=== PATIENT | male | born 1960 | race Two or more races ===

== ENCOUNTER 2020-01-16 09:08 | Outpatient (CLI) | payer BC ==
[2020-01-16] MEDS ORDERED: OMNIPAQUE 350 MG/ML, 100ML BOTTLE ONE (11:16)
[2020-01-27] MEDS ORDERED: ATOR40TA78 PO (13:00)
[2020-01-27] MEDS ORDERED: TRAZ-175 PO (13:00)
[2020-01-27] MEDS ORDERED: VENL37.511 PO (13:00)
[2020-01-27] MEDS ORDERED: TAMS-11 PO (13:00)
== END 2020-01-16 23:59 | disposition home or self-care (01) ==
LOC: CVU 09:08 → RAD 23:59
PROVIDERS: ATTEND Internal Medicine Cardiovascular Disease
DX: I06.1 Rheumatic aortic insufficiency (principal); I65.29 Occlusion and stenosis of unspecified carotid artery
CPT/HCPCS: 71275; 93880; Q9967

== ENCOUNTER 2020-01-28 04:34 | Inpatient (IN) | payer BC ==
[2020-01-27 13:22] LABS: MICROSCOPIC NOT IND
[2020-01-27 13:32] LABS: BASOPHILS # (AUTO) 0.03 x10^3/uL (0-0.1); BASOPHILS % (AUTO) 1 % (0-1); EOSINOPHILS # (AUTO) 0.23 x10^3/uL (0-0.4); EOSINOPHILS % (AUTO) 4 % (1-7); LYMPHOCYTES # (AUTO) 1.45 x10^3/uL (1-3.4); LYMPHOCYTES % (AUTO) 24 % (22-44); MD NO; MEAN CORPUSCULAR HEMOGLOBIN 29.7 pg (27.5-34.5); MEAN CORPUSCULAR HGB CONC 32.9 g/dL (33.2-36.2); MEAN CORPUSCULAR VOLUME 90.3 fL (81-97); MEAN PLATELET VOLUME 7.9 fL (7.4-10.4); MONOCYTES # (AUTO) 0.49 x10^3/uL (0.2-0.8); MONOCYTES % (AUTO) 8 % (2-9); NEUTROPHILS # (AUTO) 3.85 x10^3/uL (1.8-6.8); NEUTROPHILS % (AUTO) 64 % (42-75); PLATELET COUNT 178 x10^3/uL (130-400); RED BLOOD COUNT 5.25 x10^6/uL (4.38-5.82); RED CELL DISTRIBUTION WIDTH 13.4 % (9.4-14.8)
[2020-01-27 13:35] LABS: INTERNATIONAL NORMALIZED RATIO 0.95 (0.93-1.1); PROTHROMBIN TIME 10.1 Seconds (9.6-11.5)
[2020-01-27 13:36] LABS: ALANINE AMINOTRANSFERASE 41 U/L (12-78); ALBUMIN 3.6 g/dL (3.4-5.0); ANION GAP 7 mmol/L (5-15); CALCIUM 8.8 mg/dL (8.5-10.1); CHLORIDE 111 mmol/L (98-107); CREATININE 1.06 mg/dL (0.7-1.3)
[2020-01-27 13:38] LABS: ALKALINE PHOSPHATASE 63 U/L (45-117); BILIRUBIN,TOTAL 0.3 mg/dL (0.2-1.0); TOTAL PROTEIN 6.6 g/dL (6.4-8.2)
[2020-01-28] VITALS (11 sets, daily range): BP systolic 86–138; BP diastolic 47–83
[~2020-01-28] VITALS: Ht 172.7 cm; Wt 82.7 kg
[~2020-01-28 04:34] MED LIST: ATOR40TA78 PO; TAMS-11 PO; TRAZ-175 PO; VENL37.511 PO
[2020-01-28] MEDS ORDERED: CHLORHEXIDINE 15 ML UDC MM SCH (05:00)
[2020-01-28] MEDS ORDERED: DO NOT GIVE MC SCH (05:00)
[2020-01-28] MEDS ORDERED: INSULIN LISPRO 100 UNITS/ML, PEN SQ-INSULIN SCH (05:00)
[2020-01-28] MEDS ORDERED: MIDAZOLAM 10MG/2 ML ONE (06:39)
[2020-01-28] MEDS ORDERED: FENTANYL PF 250 MCG/5ML ONE ×4 (06:40)
[2020-01-28] MEDS ORDERED: CALCIUM CHLORIDE 10%, 10ML SYR ONE ×2 (06:40→11:58)
[2020-01-28] MEDS ORDERED: AMINOCAPROIC ACID 250 MG/ML, 20ML ONE ×28 (06:42→06:47)
[2020-01-28] MEDS ORDERED: ROCURONIUM 10MG/ML,5ML ONE ×2 (06:46→06:48)
[2020-01-28] MEDS ORDERED: EPINEPHRINE 1 MG/ML, 1ML ONE (06:46)
[2020-01-28] MEDS ORDERED: PROPOFOL 10 MG/ML, 20ML ONE (06:47)
[2020-01-28] MEDS ORDERED: SODIUM CHLORIDE 0.9% 1,000 ML IV PRN (07:19)
[2020-01-28] MEDS ORDERED: NITROGLYCERIN/D5W PMX 250 ML IV PRN (07:19)
[2020-01-28] MEDS ORDERED: REGULAR INSULIN 100 UNITS in SODIUM CHLORIDE 0.9% 99 ML IV PRN ×2 (07:19→07:30)
[2020-01-28] MEDS ORDERED: PHENYLEPHRINE 50 MG in SODIUM CHLORIDE 0.9% 245 ML IV PRN ×2 (07:19→07:30)
[2020-01-28] MEDS ORDERED: VASOPRESSIN 20 UNIT/ML, 1ML ONE (07:21)
[2020-01-28] MEDS ORDERED: POTASSIUM CHLORIDE 80 MEQ, SODIUM BICARBONATE 8.4% 10 MEQ, MAGNESIUM SULFATE 0.5 GM, LI... IV PRN (07:30)
[2020-01-28] MEDS ORDERED: EPINEPHRINE 5 MG in SODIUM CHLORIDE 0.9% 245 ML IV PRN ×2 (07:30→10:30)
[2020-01-28] MEDS ORDERED: ACETAMINOPHEN 325 MG TABLET PO PRN (07:30)
[2020-01-28] MEDS ORDERED: VANCOMYCIN 1,200 MG in SODIUM CHLORIDE 0.9% 250 ML IV PRN (07:30)
[2020-01-28] MEDS ORDERED: CEFUROXIME 1.5 GM in SODIUM CHLORIDE 0.9% 50 ML IVPB PRN (07:30)
[2020-01-28] MEDS ORDERED: DEXTROSE 4 GM TAB.CHEW PO PRN (07:30)
[2020-01-28] MEDS ORDERED: DEXMEDETOMIDINE 200 MCG in SODIUM CHLORIDE 0.9% 48 ML IV PRN ×2 (07:30→10:30)
[2020-01-28] MEDS ORDERED: MANNITOL PMX 20% 500 ML IVPB PRN (07:30)
[2020-01-28] MEDS ORDERED: SODIUM BICARB 8.4%, 50ML SYRINGE IV PRN (07:30)
[2020-01-28] MEDS ORDERED: FENTANYL PF 100 MCG/2ML IVPush PRN (07:30)
[2020-01-28] MEDS ORDERED: DEXTROSE 50%, 50ML SYRINGE IVPush PRN (07:30)
[2020-01-28] MEDS ORDERED: ALBUMIN HUMAN 5% 500 ML IV PRN (07:30)
[2020-01-28] MEDS ORDERED: GLUCAGON 1 MG IM PRN (07:30)
[2020-01-28] MEDS ORDERED: OXYcodone IR 5MG TABLET PO PRN (07:30)
[2020-01-28] MEDS ORDERED: MIDAZOLAM 1 MG/ML, 5ML IVPush PRN (07:30)
[2020-01-28] MEDS ORDERED: ACETAMINOPHEN 650 MG SUPP PR PRN (07:30)
[2020-01-28] MEDS ORDERED: BISACODYL 10 MG SUPP PR PRN (07:30)
[2020-01-28] MEDS ORDERED: LACTATED RINGERS 1,000 ML IV PRN (07:30)
[2020-01-28] MEDS ORDERED: BISACODYL 5 MG EC TABLET PO PRN (07:30)
[2020-01-28] MEDS ORDERED: INSULIN REGULAR 100 UNITS/ML, 3ML VIAL IVPush PRN (07:30)
[2020-01-28] MEDS ORDERED: HYDROcodone/APAP 5/325 TABLET PO PRN (07:30)
[2020-01-28] MEDS: MUPIROCIN OINT 2%, 22GM NAS SCH ×2 (09:00→21:27)
[2020-01-28] MEDS ORDERED: MUPIROCIN OINT 2%, 22GM TP SCH (09:00)
[2020-01-28] MEDS: DOCUSATE 100 MG CAPSULE PO SCH ×2 (09:00→21:26)
[2020-01-28] MEDS ORDERED: VASOPRESSIN 20 UNIT in SODIUM CHLORIDE 0.9% 99 ML IV PRN (10:30)
[2020-01-28] MEDS ORDERED: DOBUTAMINE 250 MG in SODIUM CHLORIDE 0.9% 230 ML IV PRN (10:30)
[2020-01-28] MEDS ORDERED: PROCHLORPERAZINE 5 MG/ML, 2ML IVPush PRN (10:30)
[2020-01-28] MEDS: KSCALE TO 4.5 IV SCH ×2 (11:00→17:00)
[2020-01-28] MEDS: INSULIN LISPRO 100 UNITS/ML, PEN SQ-INSULIN SCH ×3 (11:00→19:36)
[2020-01-28 11:20] LABS: GLUCOSE BY BLOOD GAS ANALYZER 143 mg/dL (70-110); HEMOGLOBIN BY BLOOD GAS ANALYZ 11.4 g/dL (14.0-18.0); POTASSIUM BY BLOOD GAS ANALYZR 3.6 mmol/L (3.6-5.5)
[2020-01-28] MEDS ORDERED: PROTAMINE SULFATE 10 MG/ML, 5ML IVPush ONE (11:20)
[2020-01-28] MEDS: MAGNESIUM SULFATE 1 GM in SODIUM CHLORIDE 0.9% 100 ML IVPB SCH (11:31)
[2020-01-28 11:39] LABS: INTERNATIONAL NORMALIZED RATIO 1.54 (0.93-1.1); PROTHROMBIN TIME 16.4 Seconds (9.6-11.5)
[2020-01-28] MEDS ORDERED: SODIUM BICARB 8.4%, 50ML SYRINGE ONE (11:44)
[2020-01-28] MEDS ORDERED: ALBUMIN HUMAN 25% 50 ML ONE (11:45)
[2020-01-28] MEDS ORDERED: HEPARIN 1,000 UNITS/ML, 30ML ONE ×4 (11:46→11:47)
[2020-01-28] MEDS ORDERED: methylPREDNISolone SOD SUCC 125 MG/2 ML ONE (11:47)
[2020-01-28] MEDS ORDERED: LIDOCAINE 2%, 20ML ONE (11:48)
[2020-01-28] MEDS ORDERED: CALCIUM CHLORIDE 10%, 10ML SYR IVPush STA (11:52)
[2020-01-28] MEDS ORDERED: NOVOSEVEN RT (FACTOR VIIA) RECOMB 1,000 MCG IVPush ONE (11:52)
[2020-01-28] MEDS: SODIUM CHLORIDE FLUSH 10ML SYR IVF SCH ×4 (12:07→21:28)
[2020-01-28] MEDS ORDERED: CALCIUM CHLORIDE 13.6 MEQ in SODIUM CHLORIDE 0.9% 100 ML IV ONE (12:30)
[2020-01-28] MEDS ORDERED: POTASSIUM CHLORIDE 30 MEQ in SODIUM CHLORIDE 0.9% 100 ML IV ONE (12:30)
[2020-01-28] MEDS: CEFUROXIME 1.5 GM in SODIUM CHLORIDE 0.9% 50 ML IVPB SCH (17:58)
[2020-01-28] MEDS: HYDROcodone/APAP 10/325 MG TABLET PO PRN (19:13)
[2020-01-28] MEDS ORDERED: ALBUMIN HUMAN 5% 500 ML IV ONE (21:00)
[2020-01-28] MEDS: ONDANSETRON 2MG/ML, 2ML IVPush PRN (21:26)
[2020-01-28] MEDS: VANCOMYCIN 1,200 MG in SODIUM CHLORIDE 0.9% 250 ML IVPB SCH (22:30)
[2020-01-29] MEDS: HYDROcodone/APAP 10/325 MG TABLET PO PRN ×4 (00:10→23:58)
[2020-01-29] MEDS: INSULIN LISPRO 100 UNITS/ML, PEN SQ-INSULIN SCH ×4 (00:11→20:42)
[2020-01-29] MEDS: KSCALE TO 4.5 IV SCH ×2 (00:36→06:18)
[2020-01-29] MEDS: ONDANSETRON 2MG/ML, 2ML IVPush PRN (04:52)
[2020-01-29 05:41] LABS: INTERNATIONAL NORMALIZED RATIO 1.12 (0.93-1.1); PROTHROMBIN TIME 11.9 Seconds (9.6-11.5)
[2020-01-29 05:45] LABS: ALBUMIN 2.8 g/dL (3.4-5.0); ANION GAP 4 mmol/L (5-15); CALCIUM 7.9 mg/dL (8.5-10.1); CHLORIDE 111 mmol/L (98-107); CREATININE 0.98 mg/dL (0.7-1.3)
[2020-01-29 05:46] LABS: BASOPHILS # (AUTO) 0.01 x10^3/uL (0-0.1); BASOPHILS % (AUTO) 0 % (0-1); EOSINOPHILS % (AUTO) 0 % (1-7); LYMPHOCYTES # (AUTO) 0.88 x10^3/uL (1-3.4); LYMPHOCYTES % (AUTO) 10 % (22-44); MD NO; MEAN CORPUSCULAR HGB CONC 33.6 g/dL (33.2-36.2); MEAN CORPUSCULAR VOLUME 89.4 fL (81-97); MEAN PLATELET VOLUME 8.1 fL (7.4-10.4); MONOCYTES # (AUTO) 0.95 x10^3/uL (0.2-0.8); MONOCYTES % (AUTO) 11 % (2-9); NEUTROPHILS # (AUTO) 7.14 x10^3/uL (1.8-6.8); NEUTROPHILS % (AUTO) 80 % (42-75); PLATELET COUNT 106 x10^3/uL (130-400); RED BLOOD COUNT 3.05 x10^6/uL (4.38-5.82); RED CELL DISTRIBUTION WIDTH 13.3 % (9.4-14.8)
[2020-01-29] MEDS: CEFUROXIME 1.5 GM in SODIUM CHLORIDE 0.9% 50 ML IVPB SCH (06:22)
[2020-01-29] MEDS: VANCOMYCIN 1,200 MG in SODIUM CHLORIDE 0.9% 250 ML IVPB SCH (07:47)
[2020-01-29] MEDS ORDERED: ALBUMIN HUMAN 5% 500 ML IV ONE (08:30)
[2020-01-29] MEDS ORDERED: KETOROLAC 30 MG/1 ML ONE (08:46)
[2020-01-29] MEDS: KETOROLAC 30 MG/1 ML IVPush SCH ×3 (08:53→20:34)
[2020-01-29] MEDS: DOCUSATE 100 MG CAPSULE PO SCH ×2 (08:53→20:35)
[2020-01-29] MEDS: CHLORHEXIDINE 15 ML UDC MM SCH ×2 (08:53→20:44)
[2020-01-29] MEDS: ASPIRIN 81 MG TABLET EC PO SCH (08:53)
[2020-01-29] MEDS ORDERED: TAMSULOSIN 0.4 MG CAP.ER.24H ONE (08:57)
[2020-01-29] MEDS ORDERED: FUROSEMIDE 20 MG/2 ML ONE (08:57)
[2020-01-29] MEDS: FUROSEMIDE 20 MG/2 ML IV SCH (09:00)
[2020-01-29] MEDS: SODIUM CHLORIDE FLUSH 10ML SYR IVF SCH ×4 (09:00→20:42)
[2020-01-29] MEDS: TAMSULOSIN 0.4 MG CAP.ER.24H PO SCH (09:13)
[2020-01-29] MEDS: VENLAFAXINE XR 37.5MG CAP.ER.24H PO SCH (09:13)
[2020-01-29] MEDS: MUPIROCIN OINT 2%, 22GM NAS SCH ×2 (09:13→20:35)
[2020-01-29] MEDS: MAGNESIUM SULFATE 1 GM in SODIUM CHLORIDE 0.9% 100 ML IVPB SCH (11:01)
[2020-01-29] MEDS: ATORVASTATIN 40 MG TABLET PO SCH (20:35)
[2020-01-29] MEDS ORDERED: TRAZODONE 100MG TABLET PO PRN (21:00)
[2020-01-30] MEDS: KETOROLAC 30 MG/1 ML IVPush SCH ×4 (03:29→19:48)
[2020-01-30] MEDS: HYDROcodone/APAP 10/325 MG TABLET PO PRN ×4 (04:19→22:40)
[2020-01-30 04:43] LABS: MICROSCOPIC AUTO
[2020-01-30 04:55] LABS: CULTURE INDICATED? NO
[2020-01-30 05:04] LABS: ANION GAP 2 mmol/L (5-15); CALCIUM 7.9 mg/dL (8.5-10.1); CHLORIDE 110 mmol/L (98-107); CREATININE 1.07 mg/dL (0.7-1.3); INTERNATIONAL NORMALIZED RATIO 1.03 (0.93-1.1); PROTHROMBIN TIME 10.9 Seconds (9.6-11.5)
[2020-01-30 05:50] LABS: MEAN CORPUSCULAR HEMOGLOBIN 29.7 pg (27.5-34.5); MEAN CORPUSCULAR HGB CONC 32.9 g/dL (33.2-36.2); MEAN CORPUSCULAR VOLUME 90.2 fL (81-97); MEAN PLATELET VOLUME 8.6 fL (7.4-10.4); PLATELET COUNT 82 x10^3/uL (130-400); RED CELL DISTRIBUTION WIDTH 13.8 % (9.4-14.8)
[2020-01-30 05:52] LABS: BASOPHILS # (AUTO) 0.02 x10^3/uL (0-0.1); BASOPHILS % (AUTO) 0 % (0-1); EOSINOPHILS # (AUTO) 0.01 x10^3/uL (0-0.4); EOSINOPHILS % (AUTO) 0 % (1-7); LYMPHOCYTES # (AUTO) 0.77 x10^3/uL (1-3.4); LYMPHOCYTES % (AUTO) 9 % (22-44); MD SCAN; MONOCYTES % (AUTO) 9 % (2-9); NEUTROPHILS % (AUTO) 82 % (42-75)
[2020-01-30] MEDS: INSULIN LISPRO 100 UNITS/ML, PEN SQ-INSULIN SCH ×3 (07:00→16:00)
[2020-01-30] MEDS ORDERED: POTASSIUM CHLORIDE 10 MEQ TABLET.ER PO SCH (08:00)
[2020-01-30] MEDS: DOCUSATE 100 MG CAPSULE PO SCH ×2 (08:52→19:48)
[2020-01-30] MEDS: TAMSULOSIN 0.4 MG CAP.ER.24H PO SCH (08:52)
[2020-01-30] MEDS: ASPIRIN 81 MG TABLET EC PO SCH (08:52)
[2020-01-30] MEDS: VENLAFAXINE XR 37.5MG CAP.ER.24H PO SCH (08:52)
[2020-01-30] MEDS: CHLORHEXIDINE 15 ML UDC MM SCH ×2 (08:52→19:48)
[2020-01-30] MEDS: FUROSEMIDE 20 MG/2 ML IV SCH (08:53)
[2020-01-30] MEDS: MUPIROCIN OINT 2%, 22GM NAS SCH ×2 (08:56→19:48)
[2020-01-30] MEDS: SODIUM CHLORIDE FLUSH 10ML SYR IVF SCH ×4 (08:57→19:33)
[2020-01-30 10:10] VITALS: BP 87/55
[2020-01-30 10:30] VITALS: BP 97/54
[2020-01-30 10:45] VITALS: BP 88/57
[2020-01-30] MEDS: MAGNESIUM SULFATE 1 GM in SODIUM CHLORIDE 0.9% 100 ML IVPB SCH (11:58)
[2020-01-30 13:00] VITALS: BP 96/58
[2020-01-30] MEDS: ATORVASTATIN 40 MG TABLET PO SCH (19:48)
[2020-01-30 19:59] VITALS: BP 88/64
[2020-01-30 22:30] VITALS: BP 96/63
[2020-01-31] MEDS: KETOROLAC 30 MG/1 ML IVPush SCH ×4 (02:52→21:18)
[2020-01-31 02:58] VITALS: BP 89/53
[2020-01-31 03:59] LABS: ANION GAP 2 mmol/L (5-15); CALCIUM 7.8 mg/dL (8.5-10.1); CHLORIDE 110 mmol/L (98-107); CREATININE 0.85 mg/dL (0.7-1.3)
[2020-01-31 04:14] LABS: MEAN CORPUSCULAR HEMOGLOBIN 29.7 pg (27.5-34.5); MEAN CORPUSCULAR HGB CONC 33.2 g/dL (33.2-36.2); MEAN CORPUSCULAR VOLUME 89.5 fL (81-97); RED BLOOD COUNT 2.94 x10^6/uL (4.38-5.82); RED CELL DISTRIBUTION WIDTH 13.9 % (9.4-14.8)
[2020-01-31 04:21] LABS: BASOPHILS # (AUTO) 0.03 x10^3/uL (0-0.1); BASOPHILS % (AUTO) 0 % (0-1); EOSINOPHILS # (AUTO) 0.22 x10^3/uL (0-0.4); EOSINOPHILS % (AUTO) 3 % (1-7); LYMPHOCYTES # (AUTO) 1.07 x10^3/uL (1-3.4); LYMPHOCYTES % (AUTO) 14 % (22-44); MD SCAN; MEAN PLATELET VOLUME 8.8 fL (7.4-10.4); MONOCYTES # (AUTO) 0.62 x10^3/uL (0.2-0.8); MONOCYTES % (AUTO) 8 % (2-9); NEUTROPHILS # (AUTO) 5.83 x10^3/uL (1.8-6.8); NEUTROPHILS % (AUTO) 75 % (42-75); PLATELET COUNT 69 x10^3/uL (130-400)
[2020-01-31] MEDS: TAMSULOSIN 0.4 MG CAP.ER.24H PO SCH (08:11)
[2020-01-31] MEDS: ASPIRIN 81 MG TABLET EC PO SCH (08:11)
[2020-01-31] MEDS: FUROSEMIDE 20 MG/2 ML IV SCH ×3 (08:11→21:19)
[2020-01-31] MEDS: DOCUSATE 100 MG CAPSULE PO SCH ×2 (08:13→21:19)
[2020-01-31] MEDS: VENLAFAXINE XR 37.5MG CAP.ER.24H PO SCH (08:13)
[2020-01-31] MEDS: POTASSIUM CHLORIDE 20 MEQ TAB.ER.PRT PO SCH ×3 (08:17→21:19)
[2020-01-31] MEDS: SODIUM CHLORIDE FLUSH 10ML SYR IVF SCH ×5 (08:17→21:19)
[2020-01-31] MEDS: MUPIROCIN OINT 2%, 22GM NAS SCH ×2 (08:23→22:06)
[2020-01-31] MEDS ORDERED: MAGNESIUM HYDROXIDE 8%, 30ML UDC PO PRN (08:30)
[2020-01-31 09:48] VITALS: BP 136/80
[2020-01-31 13:25] VITALS: BP 110/70
[2020-01-31 19:43] VITALS: BP 94/61
[2020-01-31] MEDS: ATORVASTATIN 40 MG TABLET PO SCH (21:19)
[2020-02-01] MEDS: KETOROLAC 30 MG/1 ML IVPush SCH ×4 (03:03→21:19)
[2020-02-01 03:04] VITALS: BP 98/64
[2020-02-01 03:33] LABS: BASOPHILS # (AUTO) 0.03 x10^3/uL (0-0.1); BASOPHILS % (AUTO) 0 % (0-1); EOSINOPHILS # (AUTO) 0.16 x10^3/uL (0-0.4); EOSINOPHILS % (AUTO) 2 % (1-7); LYMPHOCYTES # (AUTO) 0.86 x10^3/uL (1-3.4); LYMPHOCYTES % (AUTO) 13 % (22-44); MD NO; MEAN CORPUSCULAR HEMOGLOBIN 30.3 pg (27.5-34.5); MEAN CORPUSCULAR HGB CONC 33.8 g/dL (33.2-36.2); MEAN CORPUSCULAR VOLUME 89.4 fL (81-97); MEAN PLATELET VOLUME 8.8 fL (7.4-10.4); MONOCYTES # (AUTO) 0.61 x10^3/uL (0.2-0.8); MONOCYTES % (AUTO) 9 % (2-9); NEUTROPHILS # (AUTO) 4.96 x10^3/uL (1.8-6.8); NEUTROPHILS % (AUTO) 75 % (42-75); PLATELET COUNT 114 x10^3/uL (130-400); RED BLOOD COUNT 3.13 x10^6/uL (4.38-5.82); RED CELL DISTRIBUTION WIDTH 13.9 % (9.4-14.8)
[2020-02-01 03:43] LABS: ANION GAP 4 mmol/L (5-15); CALCIUM 8.3 mg/dL (8.5-10.1); CHLORIDE 110 mmol/L (98-107); CREATININE 0.96 mg/dL (0.7-1.3)
[2020-02-01 07:20] VITALS: BP 107/73
[2020-02-01] MEDS: TAMSULOSIN 0.4 MG CAP.ER.24H PO SCH (07:58)
[2020-02-01] MEDS: POTASSIUM CHLORIDE 20 MEQ TAB.ER.PRT PO SCH ×2 (07:58→21:18)
[2020-02-01] MEDS: DOCUSATE 100 MG CAPSULE PO SCH ×2 (07:58→21:18)
[2020-02-01] MEDS: ASPIRIN 81 MG TABLET EC PO SCH (07:58)
[2020-02-01] MEDS: FUROSEMIDE 20 MG/2 ML IV SCH ×2 (07:58→21:19)
[2020-02-01] MEDS: SODIUM CHLORIDE FLUSH 10ML SYR IVF SCH ×6 (07:59→21:20)
[2020-02-01] MEDS: VENLAFAXINE XR 37.5MG CAP.ER.24H PO SCH (07:59)
[2020-02-01] MEDS: MUPIROCIN OINT 2%, 22GM NAS SCH ×2 (08:24→21:20)
[2020-02-01 14:15] VITALS: BP 101/66
[2020-02-01 19:33] VITALS: BP 112/71
[2020-02-01] MEDS: ATORVASTATIN 40 MG TABLET PO SCH (21:18)
[2020-02-02 03:16] VITALS: BP 100/64
[2020-02-02] MEDS: KETOROLAC 30 MG/1 ML IVPush SCH ×2 (03:18→08:35)
[2020-02-02 05:33] LABS: BASOPHILS # (AUTO) 0.05 x10^3/uL (0-0.1); BASOPHILS % (AUTO) 1 % (0-1); EOSINOPHILS # (AUTO) 0.22 x10^3/uL (0-0.4); EOSINOPHILS % (AUTO) 4 % (1-7); LYMPHOCYTES # (AUTO) 1.13 x10^3/uL (1-3.4); LYMPHOCYTES % (AUTO) 19 % (22-44); MD NO; MEAN CORPUSCULAR HEMOGLOBIN 29.9 pg (27.5-34.5); MEAN CORPUSCULAR HGB CONC 33.5 g/dL (33.2-36.2); MEAN CORPUSCULAR VOLUME 89.2 fL (81-97); MEAN PLATELET VOLUME 8.5 fL (7.4-10.4); MONOCYTES # (AUTO) 0.64 x10^3/uL (0.2-0.8); MONOCYTES % (AUTO) 11 % (2-9); NEUTROPHILS # (AUTO) 4.02 x10^3/uL (1.8-6.8); NEUTROPHILS % (AUTO) 66 % (42-75); PLATELET COUNT 143 x10^3/uL (130-400); RED BLOOD COUNT 3.36 x10^6/uL (4.38-5.82); RED CELL DISTRIBUTION WIDTH 14.1 % (9.4-14.8)
[2020-02-02 05:37] LABS: ANION GAP 5 mmol/L (5-15); CALCIUM 8.6 mg/dL (8.5-10.1); CHLORIDE 109 mmol/L (98-107); CREATININE 1.07 mg/dL (0.7-1.3)
[2020-02-02 07:24] VITALS: BP 106/71
[2020-02-02] MEDS: DOCUSATE 100 MG CAPSULE PO SCH (08:34)
[2020-02-02] MEDS: POTASSIUM CHLORIDE 20 MEQ TAB.ER.PRT PO SCH (08:34)
[2020-02-02] MEDS: VENLAFAXINE XR 37.5MG CAP.ER.24H PO SCH (08:34)
[2020-02-02] MEDS: ASPIRIN 81 MG TABLET EC PO SCH (08:35)
[2020-02-02] MEDS: TAMSULOSIN 0.4 MG CAP.ER.24H PO SCH (08:35)
[2020-02-02] MEDS: SODIUM CHLORIDE FLUSH 10ML SYR IVF SCH (08:35)
[2020-02-02] MEDS: FUROSEMIDE 20 MG/2 ML IV SCH (08:35)
[2020-02-02] MEDS ORDERED: FURO-93 PO (09:54)
[2020-02-02] MEDS ORDERED: TRAM50TA2 PO (09:54)
[2020-02-02] MEDS ORDERED: POTA10TA6 PO (09:54)
[2020-02-02] MEDS ORDERED: ASPI81TA45 PO (09:54)
== END 2020-02-02 12:55 | disposition home or self-care (01) | DRG 267 ==
LOC: 5SO 04:34 → CSU 10:12 → 5SO 01-30 22:16
PROVIDERS: ADMIT Thoracic Surgery (Cardiothoracic Vascular Surgery); ATTEND Thoracic Surgery (Cardiothoracic Vascular Surgery)
PROC: 5A1221Z Performance of Cardiac Output, Continuous (ICD-10-PCS; 2020-01-28)
PROC: B246ZZ4 Ultrasonography of Right and Left Heart, Transesophageal (ICD-10-PCS; 2020-01-28)
PROC: 02RF38Z Replacement of Aortic Valve with Zooplastic Tissue, Percutaneous Approach (ICD-10-PCS; principal; 2020-01-28 07:30)
DX: I35.0 Nonrheumatic aortic (valve) stenosis (principal); D62 Acute posthemorrhagic anemia; I71.2 Thoracic aortic aneurysm, without rupture; N40.0 Benign prostatic hyperplasia without lower urinary tract symptoms; F41.9 Anxiety disorder, unspecified; E78.5 Hyperlipidemia, unspecified; I95.9 Hypotension, unspecified; Z00.6 Encounter for examination for normal comparison and control in clinical research program; Z86.79 Personal history of other diseases of the circulatory system; Z79.82 Long term (current) use of aspirin; Z79.899 Other long term (current) drug therapy
CPT/HCPCS: 36415; 36600; J3490; S0017; 71045; 71046; 80047; 80048; 80053; 81001; 81003; 82040; 82330; 82800; 82803; 82810; 82947; 82962; 83036; 83735; 84132; 84295; 85014; 85018; 85025; 85049; 85347; 85610; 85730; 86850; 86900; 86923; 87040; 87081; 88304; 88305; 93005; 93312; 93321; 93325; 94002; 94150; C1768; G0378; J0171; J0697; J1644; J1815; J1885; J2250; J2405; J2704; J2720; J3010; J3370; J3475; J3480; J7189; P9045; P9047; C1751; C1760; J1940; J2370; J2930; J7050; P9012; P9016; P9035

== ENCOUNTER → 2020-08-02 | Outpatient (CLI) | payer BC ==
[~2020-08-02] MED LIST changes: +ASPI81TA45 PO; +FURO-93 PO; +POTA10TA6 PO; +TRAM50TA2 PO
== END | disposition home or self-care (01) ==
LOC: CFH 07:36
PROVIDERS: ATTEND Internal Medicine Cardiovascular Disease
DX: I77.810 Thoracic aortic ectasia (principal)
CPT/HCPCS: 93306